=== PATIENT | female | born 1975 | race Caucasian/White ===

== ENCOUNTER 2020-05-03 12:59 | Emergency (ER) | payer OTHER ==
[2020-05-03 13:38] VITALS: BP 98/67; PULSE 103; TEMP 97.6; BMI 29.0
[2020-05-03 14:35] LABS: BASO % 0.3 % (0-2.0); EOS % 1.8 % (0-4.5); HEMATOCRIT 41.4 % (32.4-45.2); LYMPH % 20.9 % (8-40); MCH 28.6 pg (25.7-33.7); MCHC 33.8 g/dl (32.0-36.0); MEAN CELL VOLUME 84.6 fl (80-96); MEAN PLT VOLUME 8.2 fl (7.5-11.1); MONO % 8.9 % (3.8-10.2); NEUT % 68.1 % (42.8-82.8); PLATELET COUNT 393 K/MM3 (134-434); RDW 14.1 % (11.6-15.6); WHITE BLOOD COUNT 10.2 K/mm3 (4.0-10.0)
[2020-05-03 15:01] LABS: CHLORIDE 104 mmol/L (98-107); SODIUM 138 mmol/L (136-145)
[2020-05-03 15:02] LABS: CALCIUM 9.3 mg/dL (8.5-10.1)
[2020-05-03 15:03] LABS: ALBUMIN 3.6 g/dl (3.4-5.0); ANION GAP 3 MMOL/L (8-16); BLOOD UREA NITROGEN 9.6 mg/dL (7-18); CO2 31 mmol/L (21-32); GLUCOSE,RANDOM 82 mg/dL (74-106)
[2020-05-03 15:06] LABS: CREATININE 0.6 mg/dL (0.55-1.3); SGOT/AST 10 U/L (15-37); SGPT/ALT 21 U/L (13-61)
[2020-05-03 15:07] LABS: BILIRUBIN,TOTAL 0.3 mg/dL (0.2-1); TOT PROT 7.5 g/dl (6.4-8.2)
[2020-05-03 15:08] LABS: ALK PHOS 79 U/L (45-117)
== END 2020-05-03 19:14 | disposition home or self-care (01) ==
LOC: JER 12:59
PROC: 3E0333Z Introduction of Anti-inflammatory into Peripheral Vein, Percutaneous Approach (ICD-10-PCS; principal; 2020-05-03)
PROC: 3E033NZ Introduction of Analgesics, Hypnotics, Sedatives into Peripheral Vein, Percutaneous Approach (ICD-10-PCS; 2020-05-03)
DX: R42 Dizziness and giddiness (principal)
CPT/HCPCS: 36415; 73560-TC-LT-FY; 80053; 84484; 85025; 93005; 93010; 99285-25; J0131